=== PATIENT | male | born 1995 | race Caucasian/White ===

== ENCOUNTER 2021-12-28 21:32 | Emergency (ER) | payer MEDICAID ==
[~2021-12-28] VITALS: Ht 172.7 cm; Wt 100.0 kg
[2021-12-28] MEDS ORDERED: MAGNESIUM/ALUMINUM HYDROXIDE/SIMETHICONE 30ML UDC PO STA (21:37)
[2021-12-28] MEDS ORDERED: VISCOUS LIDOCAINE 2% 15 ML UDC PO STA (21:37)
[2021-12-28] MEDS ORDERED: FAMOTIDINE 20MG TABLET PO ONE (21:45)
[2021-12-28 23:23] LABS: BASOPHILS % 1.1 % (0.0-2.0); EOSINOPHILS % 0.8 % (0.0-5.0); HEMATOCRIT. 45.3 % (42.0-52.0); HEMOGLOBIN. 15.8 g/dL (14.0-18.0); LYMPHOCYTES % 29.3 % (20.0-50.0); MEAN CORPUSCULAR HEMOGLOBIN 32.8 pg (28.0-32.0); MEAN CORPUSCULAR VOLUME 93.7 fL (80.0-94.0); MEAN PLATELET VOLUME 8.8 fl (7.4-10.4); MONOCYTES % 9.1 % (2.0-8.0); NEUTROPHILS % 59.7 % (40.0-76.0); PLATELET 279 x1000/uL (130-400); RED BLOOD CELL COUNT 4.83 mill/uL (4.7-6.1); RED CELL DISTRIBUTION WIDTH 12.9 % (11.6-14.6)
[2021-12-28 23:28] LABS: CHLORIDE 104 mEq/L (98-107)
[2021-12-28 23:38] LABS: ETHANOL BLOOD < 10 mg/dL
[2021-12-28] MEDS ORDERED: MAGNESIUM/ALUMINUM HYDROXIDE/SIMETHICONE 30ML UDC PO NR (23:45)
[2021-12-28] MEDS ORDERED: VISCOUS LIDOCAINE 2% 15 ML UDC PO NR (23:45)
[2021-12-28] MEDS ORDERED: FAMOTIDINE 20MG TABLET PO NR (23:45)
[2021-12-29] MEDS ORDERED: FAMO40TA70 MT (03:52)
[2021-12-29 04:08] VITALS: BP 127/75
== END 2021-12-29 04:13 | disposition home or self-care (01) ==
LOC: ER 21:32
DX: K70.10 Alcoholic hepatitis without ascites (principal); K29.20 Alcoholic gastritis without bleeding; F10.20 Alcohol dependence, uncomplicated; Y90.0 Blood alcohol level of less than 20 mg/100 ml
CPT/HCPCS: 36415; 80053; 80320; 82962; 85025; 93005; 99284; G0480